=== PATIENT | male | born 1965 | race Caucasian/White ===

== ENCOUNTER 2018-09-25 03:39 | Inpatient (IN) | payer BC ==
[2018-09-25] MEDS ORDERED: NS 1,000 ML IV ONE ×2 (03:48→04:36)
[2018-09-25] MEDS ORDERED: MECLIZINE HCL 25 MG TAB PO ONE (03:49)
--- NOTE | 2018-09-25 03:54 | EDPHY ---
H & P Time Seen by Provider: 09/25/18 03:52 HPI/ROS: HPI CHIEF COMPLAINT: Dizziness, nausea, vomiting HISTORY OF PRESENT ILLNESS: This is a 52-year-old male, very poor historian, presents emergency room by EMS from his work employment where he called 911 for dizziness. He describes as room spinning. Associated nausea vomiting. He has had this before. He denies any chest pain or shortness of breath, does complain of a mild global headache. He states the dizziness gets worse when he moves his head a goes to sit up. EMS make contact with him as employment where it was noted by EMS that he was diaphoretic nauseous and vomiting. Complaining of room spinning dizziness sensation. Denies double vision. Unclear exactly when his dizziness started. Of note this patient very poor historian and answers "I dont know to most questions" Patient states cannot remember any the medications he takes. He does not recall the names of them. Of note the patient has never been here in this hospital system. Past Medical History: Bicuspid aortic valve, hypertension, CKD stage 3 Past Surgical History: Ureteral surgery due to reflux Social History: Denies drugs alcohol tobacco Family History: Noncontributory ROS REVIEW OF SYSTEMS: Limited review of systems due to patient's interaction answering questions. Exam Constitutional nontoxic, triage nursing summary reviewed, vital signs reviewed , awake/alert. Eyes normal conjunctivae and sclera, EOMI, PERRLA. HENT normal inspection, atraumatic, moist mucus membranes, no epistaxis, neck supple/ no meningismus, no raccoon eyes. Respiratory clear to auscultation bilaterally, normal breath sounds, no respiratory distress, no wheezing. Cardiovascular +, Mumur. rate normal, regular rhythm, no edema, distal pulses normal. Gastrointestinal soft, non-tender, no rebound, no guarding, normal bowel sounds, no distension, no pulsatile mass. Genitourinary no CVA tenderness. Musculoskeletal no midline vertebral tenderness, full range of motion, no calf swelling, no tenderness of extremities, no meningismus, good pulses, neurovascularly intact. Skin pink, warm, & dry, no rash, skin atraumatic. Neurologic awake, alert and oriented x 3, AAOx3, moves all 4 extremities equally, motor intact, sensory intact, CN II-XII intact, normal cerebellar, normal vision, normal speech. Psychiatric normal mood/affect. Heme/Lymph/Immune no lymphadenopathy. Differential Diagnosis: Includes but is not limited to in a particular order benign positional vertigo, central vertigo, intracranial bleed, stroke, mi, acute coronary syndrome, electrolyte disturbance, dehydration Medical Decision Making: Plan for this patient CT scan head without contrast, EKG, chest x-ray, troponin, electrolytes, IV fluid bolus, meclizine and re- evaluate. Re-evaluation: EKG interpretation by me on record in [facility] system. Impression time of EK:54 a.m., sinus rhythm rate of 63, NM interval 202. LVH present. Slight ST depression V4 V5 V6. No ST elevation. Q-waves noted V1 V2. Q-wave noted lead 3. CT scan head without contrast negative for acute bleed called to me by Dr. Samaniego. 0416: I did re-evaluate the patient at this time. Patient reports to me is feeling better with IV fluids. I was able to get more history from him he reports to me at 1:30 a.m. In the morning or approximately 3 hr ago he was sitting in chair in got sudden-onset dizzy. Is worse when he moves his head or opens his eyes. He describes spinning sensation. He denies any double vision, denies chest pain or shortness of breath. Does feel nauseous with this. He states he has had this before approximately a month ago. 0420: Discussed case in detail with [facility], Dr. Segal, recommend CT angiogram head and neck. Additionally recommend ambulating the patient if the patient can't ambulate feels comfortable that this is most likely peripheral vertigo. He did not feel the patient is a tPA candidate. Upon review the patient's blood work creatinine is elevated 2.[address] angiogram head and neck. 0430: Patient did ambulate well however does complain of dizziness. But able to ambulate. 0430AM: Patient ambulated well. NO deficit. Good Gait. Spoke with [facility] again , Dr. Segal, unable to get CT angiogram head and neck due to elevated creatinine. He does not feel this patient is a tPA candidate given there is no other further neuro deficit on exam the patient is able to ambulate. He would not give the patient tPA however he would admit the patient for dizziness. Additionally recommends MRI of the brain MRA. I have ordered this. Patient's lab work reviewed. Elevated creatinine 2.4. 0449: Spoke with Dr. Yin, discussed case in detail. He agrees for hospital admission for dizziness. Again the patient is able to ambulate without a neuro deficit. His dizziness has improved her room spinning sensation has improved with IV fluids meclizine and Phenergan. He is resting comfortably at this time. The patient denies any chest pain or shortness of breath. Unable to obtain CT angiogram of the head and neck. Due to elevated creatinine. Unlikely to have all large vessel occlusion due to neuro exam. Will proceed with MRI brain, and MRA. Plan for admission for further symptomatic control dizziness and observation. ED x-ray chest one view negative for acute cardiopulmonary disease image interpreted myself. Source: Patient, EMS Constitutional: Initial Vital Signs Temperature (C) 36.4 C 09/25/18 03:48 Heart Rate 65 09/25/18 03:48 Respiratory Rate 16 09/25/18 03:48 Blood Pressure 113/61 09/25/18 03:48 O2 Sat (%) 98 09/25/18 03:48 O2 Delivery Mode Nasal Cannula O2 (L/minute) 5 Allergies/Adverse Reactions: No Known Allergies Allergy (Verified 09/25/18 07:51) Home Medications: Medication Instructions Recorded Herbals/Supplements -Info Only 1 ea PO DAILY 09/25/18 Metoprolol Succinate Xr [Toprol Xl 25 mg PO HS 09/25/18 25 mg (*)] Multivitamins [Multivitamin (*)] 1 each PO HS 09/25/18 NIFEdipine ER [Adalat CC 60 mg (*)] 60 mg PO HS 09/25/18 Medical Decision Making - Data Points Laboratory Results: Laboratory Results 09/26/18 03:56 09/26/18 03:56 09/26/18 03:56 Hemoglobin A1c 6.0 % % (4.0-6.0) Estim Average Glucose 126 mg/dL mg/dL (68-126) Medications Given: Sodium Chloride (Ns) 1,000 mls @ 75 mls/hr IV CONT IKER Stop: 03/24/19 15:44 Last Admin: 09/25/18 15:54 Dose: 1,000 mls Metoprolol Succinate (Toprol Xl) 25 mg PO HS IKER Stop: 03/24/19 20:59 Last Admin: 09/26/18 21:40 Dose: 25 mg Multivitamins (Tab-A-Kenzie) 1 each PO HS IKER Stop: 03/24/19 20:59 Last Admin: 09/26/18 21:30 Dose: 1 each Nifedipine (Adalat Cc) 60 mg PO HS IKER Stop: 03/24/19 20:59 Last Admin: 09/26/18 21:30 Dose: 60 mg Discontinued Medications Chlorhexidine Gluconate (Hibiclens) 1 btl TP DAILY@2100 IKER Stop: 09/26/18 21:01 Last Admin: 09/26/18 21:39 Dose: 1 btl Sodium Chloride (Ns) 1,000 mls @ 0 mls/hr IV EDNOW ONE; Wide Open PRN Reason: Protocol Stop: 09/25/18 03:49 Last Admin: 09/25/18 03:56 Dose: 1,000 mls Sodium Chloride (Ns) 1,000 mls @ 0 mls/hr IV ONCE ONE; Wide Open PRN Reason: Protocol Stop: 09/25/18 04:37 Last Admin: 09/25/18 04:36 Dose: 1,000 mls Potassium Chloride/Sodium Chloride (Ns W/ 20 Kcl/L) 1,000 mls @ 75 mls/hr IV CONT IKER Stop: 03/24/19 08:29 Last Admin: 09/25/18 08:57 Dose: 1,000 mls Meclizine HCl (Meclizine Hcl) 25 mg PO EDNOW ONE Stop: 09/25/18 03:50 Last Admin: 09/25/18 04:16 Dose: 25 mg Pneumococcal Polyvalent Vaccine (Pneumovax 23) 0.5 ml IM .ONCE ONE Stop: 09/25/18 11:26 Last Admin: 09/25/18 11:38 Dose: 0.5 ml Potassium Chloride (Klor-Con) 20 meq PO DAILY IKER Stop: 03/24/19 08:59 Last Admin: 09/25/18 08:57 Dose: 20 meq Promethazine HCl (Phenergan) 6.25 mg IVP ONCE ONE Stop: 09/25/18 03:59 Last Admin: 09/25/18 04:08 Dose: 6.25 mg Point of Care Test Results: Chemistry 09/25/18 03:48 POC Troponin I 0.01 ng/mL ng/mL (0.00-0.08) Departure - Departure Disposition: [facility] Inpatient Acute Clinical Impression: Dizziness, DOTTIE (acute kidney injury) Nausea & vomiting Qualifiers: Vomiting type: unspecified Vomiting Intractability: intractable Qualified Code( s): R11.2 - Nausea with vomiting, unspecified Condition: Fair
[2018-09-25 03:57] LABS: PLATELET COUNT 286 10^3/uL (150-400)
[2018-09-25] MEDS ORDERED: PROMETHAZINE HCL 25 MG/ML INJ IVP ONE (03:58)
[2018-09-25 04:05] LABS: INR 1.1 (0.83-1.16); PROTIME(PATIENT) 14.4 SEC (12.0-15.0)
[2018-09-25] MEDS ORDERED: ACETAMINOPHEN 325 MG TAB PO PRN (04:51)
[2018-09-25] MEDS ORDERED: ONDANSETRON 4 MG/2 ML VIAL IVP PRN (04:51)
[2018-09-25] MEDS ORDERED: ONDANSETRON DISINTEGRATING 4 MG TAB PO PRN (04:51)
[2018-09-25] MEDS ORDERED: PROMETHAZINE HCL 25 MG/ML INJ IVP PRN (04:51)
[2018-09-25] MEDS ORDERED: MECLIZINE HCL 25 MG TAB PO PRN (04:52)
[2018-09-25] MEDS ORDERED: NS 1,000 ML IV SCH ×2 (05:00→15:45)
--- NOTE | 2018-09-25 05:19 | PDGENHP ---
History and Physical - Chief Complaint Dizziness, nausea - History of Present Illness 52 yo M w/ hx of bicuspid AV, CKD, and HTN presents with dizziness and nausea. Patient was in usual state of health until this afternoon when he began to experience severe dizziness and nausea while at work. He arrived to the ED via EMS. His symptoms are exacerbated by eye opening and head movement. He is able to walk but with some difficulty. He denies any other focal neurologic symptoms. Of note, he had a viral cold about 2 weeks ago. He has had one similar episode in the past 1-2 years ago. Doctors told him it may have been vertigo. His metoprolol dose was recently increased, no other medication changes. He cinthia hx of migraines. He is feeling mildly improved after medication in the ED. ED consulted [facility] who recommended MRI, which is ordered and pending. Case discussed with physician Dr. Holt; records reviewed in EMR. History Information - Allergies/Home Medication List Allergies/Adverse Reactions: No Known Allergies Allergy (Unverified 09/25/18 03:54) Home Medications: Magnesium Citrate 09/25/18 [Last Taken Unknown] Metoprolol Tartrate 09/25/18 [Last Taken Unknown] Multivitamin (*) 09/25/18 [Last Taken Unknown] NIFEdipine 09/25/18 [Last Taken Unknown] Potassium Gluconate 09/25/18 [Last Taken Unknown] I have personally reviewed and updated: family history, medical history - Past Medical History hypertension Additional medical history: CKD. Bicuspid AV - Surgical History Additional surgical history: Pediatric kidney surgery - Family History Positive for: stroke - Social History Smoking Status: Never smoked Review of Systems Review of Systems: ROS: 10pt was reviewed & negative except for what was stated in HPI & below Physical Exam Physical Exam: Temp Pulse Resp BP Pulse Ox 36.4 C 67 18 116/74 100 09/25/18 03:48 09/25/18 04:31 09/25/18 04:31 09/25/18 04:31 09/25/18 04:31 Constitutional: obese, uncomfortable Eyes: EOMI, scleral injection Ears, Nose, Mouth, Throat: moist mucous membranes, oral thrush Cardiovascular: regular rate and rhythym, systolic murmur Respiratory: no respiratory distress, clear to auscultation Gastrointestinal: normoactive bowel sounds, soft, non-tender abdomen Skin: warm, normal color Musculoskeletal: full muscle strength, no muscle tenderness Neurologic: AAOx3, CN II-XII Intact Psychiatric: interacting appropriately, flat affect Lab Data & Imaging Review 09/25/18 03:40 09/25/18 03:40 WBC 14.88 10^3/uL (3.80-9.50) H 09/25/18 03:40 RBC 5.64 10^6/uL (4.40-6.38) 09/25/18 03:40 Hgb 16.8 g/dL (13.7-17.5) 09/25/18 03:40 Hct 48.4 % (40.0-51.0) 09/25/18 03:40 MCV 85.8 fL (81.5-99.8) 09/25/18 03:40 MCH 29.8 pg (27.9-34.1) 09/25/18 03:40 MCHC 34.7 g/dL (32.4-36.7) 09/25/18 03:40 RDW 12.6 % (11.5-15.2) 09/25/18 03:40 Plt Count 286 10^3/uL (150-400) 09/25/18 03:40 MPV 11.4 fL (8.7-11.7) 09/25/18 03:40 Neut % (Auto) 70.7 % (39.3-74.2) 09/25/18 03:40 Lymph % (Auto) 20.6 % (15.0-45.0) 09/25/18 03:40 [place] % (Auto) 7.1 % (4.5-13.0) 09/25/18 03:40 Eos % (Auto) 0.9 % (0.6-7.6) 09/25/18 03:40 Baso % (Auto) 0.4 % (0.3-1.7) 09/25/18 03:40 Nucleat RBC Rel Count 0.0 % (0.0-0.2) 09/25/18 03:40 Absolute Neuts (auto) 10.50 10^3/uL (1.70-6.50) H 09/25/18 03:40 Absolute Lymphs (auto) 3.07 10^3/uL (1.00-3.00) H 09/25/18 03:40 Absolute Monos (auto) 1.06 10^3/uL (0.30-0.80) H 09/25/18 03:40 Absolute Eos (auto) 0.14 10^3/uL (0.03-0.40) 09/25/18 03:40 Absolute Basos (auto) 0.06 10^3/uL (0.02-0.10) 09/25/18 03:40 Absolute Nucleated RBC 0.00 10^3/uL (0-0.01) 09/25/18 03:40 Immature Gran % 0.3 % (0.0-1.1) 09/25/18 03:40 Immature Gran # 0.05 10^3/uL (0.00-0.10) 09/25/18 03:40 PT 14.4 SEC (12.0-15.0) 09/25/18 03:40 INR 1.10 (0.83-1.16) 09/25/18 03:40 APTT 23.0 SEC (23.0-38.0) 09/25/18 03:40 Sodium 137 mEq/L (135-145) 09/25/18 03:40 Potassium 3.1 mEq/L (3.3-5.0) L 09/25/18 03:40 Chloride 96 mEq/L (97-110) L 09/25/18 03:40 Carbon Dioxide 24 mEq/l (22-31) 09/25/18 03:40 Anion Gap 17 mEq/L (6-14) H 09/25/18 03:40 BUN 29 mg/dL (7-23) H 09/25/18 03:40 Creatinine 2.4 mg/dL (0.7-1.3) H 09/25/18 03:40 Estimated GFR 28 09/25/18 03:40 Glucose 193 mg/dL (70-100) H 09/25/18 03:40 Calcium 10.1 mg/dL (8.5-10.4) 09/25/18 03:40 Magnesium 1.9 mg/dL (1.6-2.3) 09/25/18 03:40 Total Bilirubin 1.1 mg/dL (0.1-1.4) 09/25/18 03:40 Conjugated Bilirubin 0.3 mg/dL (0.0-0.5) 09/25/18 03:40 Unconjugated Bilirubin 0.8 mg/dL (0.0-1.1) 09/25/18 03:40 AST 39 IU/L (17-59) 09/25/18 03:40 ALT 51 IU/L (21-72) 09/25/18 03:40 Alkaline Phosphatase 69 IU/L (38-126) 09/25/18 03:40 POC Troponin I 0.01 ng/mL (0.00-0.08) 09/25/18 03:48 NT-Pro-B Natriuret Pep 413 pg/mL (0-125) H 09/25/18 03:40 Total Protein 8.0 g/dL (6.3-8.2) 09/25/18 03:40 Albumin 4.5 g/dL (3.5-5.0) 09/25/18 03:40 Lipase 110 IU/L (23-300) 09/25/18 03:40 Visualized and Interpreted EKG results: Yes EKG Interpretation: Positive for: normal sinsus rhythm Assessment & Plan Assessment: 52 yo M w/ hx of HTN and CKD presents with dizziness, nausea, and vomiting. Plan: 1. Dizziness, nausea, vomiting - Constellation of symptoms consistent with vertigo. I suspect this is peripheral etiology noting lack of other focal neurologic symptoms and history of prior similar episode in the past. Exacerbation with head movement suggests BPPV, also had a cold 2 weeks ago so could be viral etiology. [facility] consulted in the ED who recommended an MRI to rule out central etiologies. CTAs contraindicated in setting of DOTTIE. - Admit for observation - mIVF, anti-emetics PRN, meclizine PRN - MRI brain pending 2. HTN - On metoprolol and nifedipine as outpatient. - Continue home medications pending reconciliation 3. DOTTIE on CKD, Stage III - Baseline creatinine 1.3-1.5 per review of records; serum creatinine 2.4 on admission. Etiology may be pre-renal noting vomiting. - Obtain UA, FeNa, FeUr - S/p 2 L IVF in ED, continue mIVF - Avoid nephrotoxic agents, renally dose medications 4. Hypokalemia - Replete cautiously noting decreased GFR. 5. Leukocytosis - Likely reactive, monitor closely for signs or symptoms of infection. Diet - Regular Code - Full Ppx - SCDs Dispo - Admit under observation status
[2018-09-25] MEDS ORDERED: NS W/ 20 KCl/L 1,000 ML IV SCH (08:30)
[2018-09-25] MEDS ORDERED: POTASSIUM CL 20 MEQ TAB PO SCH (09:00)
[2018-09-25] MEDS ORDERED: PNEUMOCOCCAL 0.5ML VACCINE VIAL IM ONE (11:25)
--- NOTE | 2018-09-25 12:50 | ASMTCMCOM ---
CM Note CM Note Notes: Pt is a 52 y/o man admitted for dizziness. PT has worked w/ pt and has cleared him to d/c without any needs. OT is pending. CM available for changes. Plan: Independent Date Signed: 09/25/2018 12:49 PM Electronically Signed By:MICHAEL Mcallister
--- NOTE | 2018-09-25 13:59 | HOSPPROG ---
Hospitalist Progress Note Assessment/Plan: Vertigo with nausea / vomiting - Brain MRI neg for acute stroke. Suspect vestibular neuritis with h/o viral URI. Symptoms somewhat improved today. - cont supportive care with IVFs, anti-emetics, meclizine PRN HTN - Cont metoprolol and nifedipine, med rec completed DOTTIE on CKD, Stage III - Baseline creatinine 1.3-1.5; serum creatinine 2.4 on admission. Suspect pre-renal with N/V. - Awaiting urine Na, Cr to calculate FeNa, cont IVF's presuming pre-renal etiology - recheck bmp this afternoon to ensure correcting - Avoid nephrotoxic agents, renally dose medications Hypokalemia - replace, follow - recheck this afternoon as above Leukocytosis - No fevers, neck pain or nuchal rigidity. Query stress response - observe off atbx, recheck in am Code - Full Ppx - SCDs Dispo - obs Subjective: Pt feels a little better, up in chair. Symptoms a little improved. No cp, sob. No neck pain or headache. No fevers. Objective: Vital Signs Temp Pulse Resp BP Pulse Ox 36.4 C 65 17 126/77 H 92 09/25/18 07:50 09/25/18 07:50 09/25/18 07:50 09/25/18 07:50 09/25/18 07:50 09/24/18 09/25/18 09/26/18 05:59 05:59 05:59 Intake Total 2120 Output Total 800 Balance 2120 -800 PT 14.4 SEC (12.0-15.0) 09/25/18 03:40 INR 1.10 (0.83-1.16) 09/25/18 03:40 - Physical Exam Constitutional: no apparent distress Eyes: PERRL Ears, Nose, Mouth, Throat: moist mucous membranes Cardiovascular: regular rate and rhythym Respiratory: no respiratory distress, clear to auscultation Gastrointestinal: normoactive bowel sounds, soft, non-tender abdomen Skin: warm Musculoskeletal: full muscle strength Neurologic: AAOx3 Psychiatric: interacting appropriately ICD10 Worksheet Patient Problems: Problems Problem Status Onset DOTTIE (acute kidney injury) Acute Dizziness Acute Nausea & vomiting Acute
[2018-09-25] MEDS: METOPROLOL SUCCINATE XR 25 MG TAB PO SCH (20:45)
[2018-09-25] MEDS: MULTIVITAMINS 1 EACH TAB PO SCH (20:45)
[2018-09-25] MEDS: NIFEdipine ER 60 MG TAB PO SCH (20:45)
[2018-09-26 04:58] LABS: PLATELET COUNT 212 10^3/uL (150-400)
--- NOTE | 2018-09-26 06:06 | CPEKG ---
Test Reason : OPEN Blood Pressure : / mmHG Vent. Rate : 063 BPM Atrial Rate : 064 BPM P-R Int : 202 ms QRS Dur : 096 ms QT Int : 468 ms P-R-T Axes : 045 008 189 degrees QTc Int : 480 ms Sinus rhythm Borderline prolonged TN interval Probable left atrial enlargement LVH with secondary repolarization abnormality Borderline prolonged QT interval Confirmed by Nirav Winkler ([id number]) on 09/26/2018 6:05:33 AM Referred By: Confirmed By:Nirav Winkler
--- NOTE | 2018-09-26 10:37 | HOSPPROG ---
Hospitalist Progress Note Assessment/Plan: Dizziness 2/2 symptomatic - Brain MRI neg for acute stroke. Symptoms sound more c/w pre-syncope and in setting of significant heart murmur, query valve dz / symptomatic - echo obtained from [facility], which showed severe - cardiology / surgical evaluation requested: discussed with Dr. Hummel and Dr. Michaud, cath today, likely valve replacement Sunday AHRF - desatted to 77% overnight. CXR this am pers reviewed/interp- no acute dz process. D dimer neg. 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 FeNa yest >2%. Renal u/s neg for obstruction. - cont to follow - Avoid nephrotoxic agents, renally dose medications Hypokalemia - resolved Leukocytosis - likely stress response, resolved Code - Full Ppx - Lovenox tonight, hold tomorrow night for planned OR Sat am Dispo - cont inpt, plans for heart cath, valve replacement Subjective: Pt feels ok, hoping to go home today. Denies CP or SOB. 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 Objective: Vital Signs Temp Pulse Resp BP Pulse Ox 36.5 C 66 20 142/84 H 98 09/26/18 07:51 09/26/18 07:51 09/26/18 07:51 09/26/18 07:51 09/26/18 07:51 Laboratory Results 09/26/18 03:56 09/26/18 03:56 09/25/18 09/26/18 09/27/18 05:59 05:59 05:59 Intake Total 2119 1019 Output Total 2049 Balance 2119 -1029 PT 14.4 SEC (12.0-15.0) 09/25/18 03:40 INR 1.10 (0.83-1.16) 09/25/18 03:40 - Physical Exam Constitutional: no apparent distress Eyes: PERRL Ears, Nose, Mouth, Throat: moist mucous membranes Cardiovascular: regular rate and rhythym, systolic murmur Respiratory: no respiratory distress, clear to auscultation Gastrointestinal: normoactive bowel sounds, soft, non-tender abdomen Skin: warm Musculoskeletal: full muscle strength Neurologic: AAOx3 Psychiatric: interacting appropriately ICD10 Worksheet Patient Problems: Problems Problem Status Onset DOTTIE (acute kidney injury) Acute Dizziness Acute Nausea & vomiting Acute
[2018-09-26] MEDS ORDERED: IPRATROPIUM/ALBUTEROL 3 ML DEYVIAL IH PRN (11:35)
--- NOTE | 2018-09-26 13:52 | GCON ---
CARDIOLOGY CONSULTATION CHIEF COMPLAINT: Dizziness, nausea. HISTORY OF PRESENT ILLNESS: This is a 52-year-old male with history of bicuspid aortic valve disease , chronic kidney disease, hypertension who presents with dizziness, lightheadedness. The patient ind icates that he has been getting increasingly lightheaded with dizziness over the last month. He did have a recent echocardiogram done apparently at an outside hospital, which showed severe aortic steno sis with a bicuspid aortic valve. Currently denies any chest pain, though he does have dyspnea with excessive exertion. Blood pressure is currently stable. Stroke workup was negative for any acute CV A. ECG on arrival showed normal sinus rhythm with nonspecific T-wave changes with no acute ischemic issues. Neck MRA showed mild plaque disease bilaterally in the carotid arteries. PAST MEDICAL HISTORY: Significant for chronic kidney disease, aortic stenosis, hypertension. HOME MEDICATIONS: Consist of magnesium, metoprolol, nifedipine, potassium. PAST SURGICAL HISTORY: Significant for pediatric kidney surgery. FAMILY HISTORY: Positive for CVA. SOCIAL HISTORY: Smoking status: Currently denies any smoking. Occasional alcohol use. REVIEW OF SYSTEMS: Patient currently denies any visual changes. No headache. No ear pain, but does indicate feeling lightheaded and dizzy with exertion. No neck pain. No throat pain. No current ch est pain. No back pain. No upper extremity pain. He does indicate shortness of breath with exertio n. No abdominal pain. No lower extremity pain. No neurologic deficits. PHYSICAL EXAM: VITAL SIGNS: Afebrile 96, blood pressure currently 140/70 with a heart rate 72, resp iration 12, satting 95% on 2 L nasal cannula. HEENT: Pupils equal and reactive to light and accommo dation. Extraocular movements intact. CARDIOVASCULAR: Regular rhythm, S1, S2. 3/6 systolic murmur throughout the precordium. LUNGS: Decreased breath sounds at the bases. ABDOMEN: Soft, nontender . No guarding. EXTREMITIES: No clubbing. No cyanosis. No edema. NEUROLOGIC: Patient is alert a nd oriented x3. LABORATORY VALUES: Currently show a sodium 140, potassium 3.6, chloride 105, bicarb 28, BUN 24, crea tinine 1.4. White blood cell count 8.8, hemoglobin 14.3, platelet count of 212. ASSESSMENT/PLAN: Dizziness/lightheadedness. At this time, it appears the patient's symptoms might b e from his underlying valvular heart disease. We will obtain our own echocardiogram to verify that t his truly is severe aortic stenosis. If indeed, this is verified that the patient does have severe/c ritical aortic stenosis, we will then proceeded with a workup for potential aortic valve replacement. Right and left heart catheterization will be needed, as well as a CT Surgery consult. We will proc eed accordingly after the echo is performed. /[id number]/MODL
--- NOTE | 2018-09-26 14:00 | ASMTCMCOM ---
CM Note CM Note Notes: Pts case discussed in tx rounds. Pt is getting a heart cath today. Pt may need open heart in the near future. Pt is not a candidate for TAVR at this time. CM met w/ pt and partner for dispo planning. Pt is concerned that his [employer] will not cover an open heart. CM provided pt w/ phone number for financial counseling. CM available for d/c needs. Date Signed: 09/26/2018 01:59 PM Electronically Signed By:MICHAEL Mcallister
[2018-09-26] MEDS ORDERED: LIDOCAINE 1% 300 MG/30 ML SDV ONE (14:34)
[2018-09-26] MEDS ORDERED: fentaNYL 100 MCG/2 ML INJ ONE (14:34)
[2018-09-26] MEDS ORDERED: MIDAZOLAM 2 MG/2 ML VIAL ONE (14:34)
[2018-09-26] MEDS ORDERED: IOPAMIDOL (ISOVUE-370) 150 ML BTL IV ONE (14:35)
--- NOTE | 2018-09-26 15:04 | PDPROPOC ---
Sedation Plan of Care Sedation Plan of Care: mental status noted, patient educated of risks, benefits , alternatives, patient can tolerate sedation ASA Classification: ASA 2 Planned drugs: fentanyl, midazolam Mallampati Score: Class 2 Mallampati Reference Image: Patient passed 3-3-2 rule?: Yes
--- NOTE | 2018-09-26 15:04 | PDHPUP ---
History & Physical Update H&P update statement: This history and physical update is based on an assessment of the patient which was completed after admission or registration (within 24 hours), but prior to the surgery/procedure. H&P update: H&P reviewed & patient examined, no change in patient's condition since H&P completed
--- NOTE | 2018-09-26 15:53 | ECHO ---
[email or web address] [address] Main: [phone] Fax: Transthoracic Echocardiogram Name: FRANCHESCA AUGUST MR#: [id number] Study Date: 09/26/2018 Study Time: 02:25 PM Date of : 1965 Age: 52 year(s) Height: 175.3 cm (69 in.) Weight: 107.96 kg (238 lb.) BSA: 2.22 m2 Gender: Male Examination: Echo Indication: Image Quality: Adequate Contrast: Requested by: Amarjit Michaud BP: 142 mmHg/84 mmHg Heart Rate: Rhythm: Indication: Procedure Staff Companion: Katie Fournier RDCS Reading Physician: Amarjit Michaud MD Requesting Provider: Conclusions: Borderline concentric LV hypertrophy. Normal global systolic LV function. EF is 60 %. Mild mitral valve regurgitation is present. Bicuspid aortic valve. Mild to moderate aortic valve regurgitation. Mild tricuspid regurgitation is present. Right ventricular systolic pressure measures 38mmHg. Measurements: Chambers Valvular Assessment AV/MV Valvular Assessment TV/PV Normal Normal Normal Name Value Range Name Value Range Name Value Range Ao Barbie (2D): 3.4 cm (1.4 cm-2.6 AV Vmax: 4.80 m/s (1 m/s-1.7 TR Vmax: 2.86 mm/s ( - ) cm) m/s) TR PGmax: 33 mmHg ( - ) IVSd (2D): 1.1 cm (0.6 cm-1.1 AV maxP mmHg ( - ) syst. PAP: 38 mmHg ( - ) cm) AV meanP mmHg ( - ) PV Vmax: 1.30 m/s (0.6 m/s-0.9 LVDd (2D): 4.5 cm (4.2 cm-5.9 MISSY (VTI): 0.8 cm ( - ) m/s) cm) MV E Vmax: 1.23 m/s ( - ) PV PGmax: 7 mmHg ( - ) LVDs (2D): 2.8 cm (2.1 cm-4 MV A Vmax: 1.21 m/s ( - ) cm) MV E/A: 1.02 ( - ) LVPWd (2D): 1.1 cm (0.6 cm-1 cm) MV PHT: 0.070 s ( - ) LVOTd 1.9 cm 1.9 cm mm MVA (PHT): 3.1 s ( - ) LVEF (BP): 60 % (>=55 %) RVDd(2D): 2.8 cm (1.9 cm-3.8 cmmm) Continued Measurements: Chambers Valvular Assessment AV/MV Valvular Assessment TV/PV Patient: FRANCHESCA AUGUST Study Date: 09/26/2018 Page 1 of 2 02:25 PM Name Value Name Value Name Value LADs: 3.8 cm MV DecTime: 239 m/s CVP (est.): 5 mmHg LADs Lon.6 cm MV E' Septal: 0.08 m/s LA Area: 15.2 cm2 MV E/E' Septal: 16.20 LA Volume: 59 ml MV E/E' Lateral: 22.30 LA Volume Index: 26.6 ml/m2 RA Area: 14.5 cm2 Additional Vessels Name Value Ao Ascendin.5 cm Findings: Left Ventricle: Normal size left ventricle. Borderline concentric LV hypertrophy. Normal global systolic LV function. EF is 60 %. No regional wall motion abnormality. Grade 2 diastolic dysfunction (pseudonormalized LV filling pattern). Right Ventricle: Normal size right ventricle. Normal RV function. Left Atrium: The left atrium is normal in size. Right Atrium: The right atrium is normal in size. Mitral Valve: The mitral valve is normal in appearance and function. Mild mitral valve regurgitation is present. No mitral stenosis is present. Aortic Valve: Bicuspid aortic valve. Moderate aortic cusp calcification is present. Mild to moderate aortic valve regurgitation. Severe calcific aortic valve stenosis. Tricuspid Valve: The tricuspid valve is normal in appearance and function. Mild tricuspid regurgitation is present. The pulmonary artery pressure is normal. Right ventricular systolic pressure measures 38mmHg. Pulmonic Valve: The pulmonic valve is normal in appearance and function. Mild pulmonic valve regurgitation is noted. Aorta: The aorta is normal. Normal size aortic root measuring 3.4 cm. Normal size ascending aorta measuring 3.5 cm. Pericardium: No pericardial effusion. No pleural effusion. (No Signature Object) Patient: FRANCHESCA AUGUST Study Date: 09/26/2018 Page 2 of 2 02:25 PM [id number]
--- NOTE | 2018-09-26 16:13 | PDMN ---
Medical Necessity Medical necessity: Change to inpt as of 09/26/18 @ 10:34. Pt meets inpt criteria per MD order and MCG M-152, Dizziness. Ongoing dizziness/light headedness requiring further workup, cardiology consult, suspect pt's symptoms from his underlying valvular heart disease. Echo pending, heart cath pending. Est LOS> 2MN for ongoing eval/management of above.
--- NOTE | 2018-09-26 16:58 | CPIP ---
DATE OF PROCEDURE: 09/26/2018 INDICATION FOR PROCEDURE: Critical aortic stenosis. PROCEDURE: 1. Nonselective right groin sheathogram. 2. 7-Egyptian sheath right femoral vein. 3. Right heart catheterization with [place] catheter. 4. Bilateral coronary angiography. HISTORY: Briefly, this is a 52-year-old male with history of dizziness, lightheadedness, shortness o f breath who was admitted for these symptoms, and was found to have critical bicuspid aortic stenosis . Given these findings, patient was consented for right and left heart catheterization in anticipati on for eventual AVR. DESCRIPTION OF PROCEDURE: After informed consent, the patient was brought to [facility] where the right silke in was prepped and draped in sterile fashion. Using lidocaine, a short 6-Egyptian sheath was introduced in the right femoral artery, verified angiogr aphically. A 7-Egyptian sheath in the right common vein. [place] catheter was then advanced, which was latex-free due to the patient's latex allergy. Wedge pressure was mean of 25, A-wave of 30, V-wa ve of 33. PA pressure was systolic of 50 with a diastolic 24, mean of 33. RV pressure was systolic 43, diastolic of 18, end of 21. RA pressure was 17 mean, A-wave 19, V-wave 17. Cardiac output was m easured to be 6.9 by Alejandra with a cardiac index of 3.1. PA sat was 74% with an AO sat of 94%. [place] catheter was then removed. A JL4 catheter was advanced to left coronary artery. Images of the left coronary artery revealed long left main. Left circumflex artery gave off a marginal 1 prox imally, which was healthy and free of disease. The AV groove circ had fldq-sy-arpkosrm plaque diseas e, but no focal stenosis. The LAD was a long vessel, which wrapped around the apex. The LAD gave of f a large diagonal artery in its midportion, which was healthy and free of disease. Distal LAD appea red to be healthy and free of disease. After these images obtained, the JL4 catheter was removed. The JR4 catheter was advanced to the [facility] coronary artery. Images of the right coronary artery revealed normal ostium, proximal, distal RCA, normal RPDA and RPLS. After these images were obtained, the JR4 catheter was removed over the 0.035 wire. The right groin was closed 6-Egyptian Angio-Seal. The patient tolerated the procedure well wit h no complications. #7-Egyptian sheath was removed with manual compression. IMPRESSION: 1. Essentially normal coronary arteries. 2. Dguw-ji-nearvamz pulmonary hypertension. 3. Normal cardiac output. PLAN: The patient will have 3 hours bed rest. Continue with CT Surgery evaluation for open AVR. /[id number]/MODL
--- NOTE | 2018-09-26 17:03 | GCON ---
DATE OF CONSULTATION: 09/26/2018 REFERRING PHYSICIAN: Khushboo Bob MD The patient is seen at the request of Dr. Khushboo Bob with the patient's permission. IMPRESSION: 1. Critical aortic stenosis, symptomatic with a bicuspid aortic valve, status of the coronaries and aorta unknown. 2. Obesity. 3. Chronic kidney disease with baseline creatinine of 1.4 to 2.4 on this admission. 4. Hyperlipidemia. 5. Hapfvojpw-kv-iuhqech hypertension. RECOMMENDATIONS: This gentleman should undergo urgent aortic valve replacement for syncope and near- syncope episodes with minimal provocation with known critical aortic stenosis. He was initially aske d to be seen for transcatheter aortic valve replacement; however, he is a low risk transcatheter aort ic valve replacement, and at his age with bicuspid valve, surgical intervention is more appropriate. We will obtain a noncontrast CT and do a limited diagnostic catheterization with anticipation of pro ceeding with aortic valve replacement on this admission. He and his were in full agreement and appreciative of our discussion. He will be seen by Dr. Maravilla in the morning who will help correlate the timing of the surgery. CHIEF COMPLAINT: This is a pleasant 52-year-old gentleman with a history of known aortic stenosis wi th bicuspid aortic valve disease seen several years ago for a near-syncopal event. At that time, his disease was considered only moderate to moderate severe. he had no subsequent followup and until re cently, he was having dizziness, lightheadedness, and near-syncopal episodes. He underwent a diagnos tic echo at [facility], which revealed velocities of 4.5 with hypertrophic heart disease and minimal other o bvious abnormalities. He then was at work in [employer] and had a syncopal event at work while sitting at his desk. He was brought to the ER, Initially worked up for neurological disorder, which none was identified, and upon further evaluation, hospitalist identified critical aortic stenosis and obtaine d his echo from [facility]. PAST MEDICAL HISTORY: As stated. PAST SURGICAL HISTORY: Surgeries denied. 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 HOME MEDICATIONS: Magnesium, metoprolol, multivitamin, nifedipine, and potassium gluconate. ALLERGIES: He has no known allergies. PHYSICAL EXAM: GENERAL: He is a bit obese middle-aged gentleman sitting in bed, comfortable, in no apparent distress, quite pleasant, well informed. HEENT: Normocephalic. ACOSTA, EOMI. NECK: Has transmitted bruits from the chest. HEART: Has a murmur of critical aortic stenosis across precordiu m. LUNGS: Clear. ABDOMEN: Protuberant. No palpable mass. EXTREMITIES: Pedal pulses are 2+ and symmetrical. No edema. No varicosities. LABORATORY/IMAGING: Baseline creatinine was 2.4 on admission and is 1.4 today. Chest x-ray shows no abnormality. /[id number]/MODL
--- NOTE | 2018-09-26 17:09 | PDSURGCRDT ---
CardioThoracic Surgery Note - Objective Objective: Vital Signs Temp Pulse Resp BP Pulse Ox 36.5 C 66 20 142/84 H 86 L 09/26/18 07:51 09/26/18 07:51 09/26/18 07:51 09/26/18 07:51 09/26/18 11:28 Imaging: Brief note (full consult to follow) 52 year old with critical and syncope. Cath shows normal coronaries. Ascending aorta looks mildly enlarged on echo. Due to bicuspid nature of valve, will plan for ascending aortic repair if enlarged. Risks benefits alternatives reviewed. Patient agrees to proceed. Plan for OR tomorrow at 11:45. Aortic valve replacement possible repair ascending aorta aneurysm Exam Temp Pulse Resp BP Pulse Ox 36.5 C 66 20 142/84 H 86 L 09/26/18 07:51 09/26/18 07:51 09/26/18 07:51 09/26/18 07:51 09/26/18 11:28
[2018-09-26] MEDS ORDERED: ENOXAPARIN 40 MG/0.4 ML SYR SC SCH (21:00)
[2018-09-26] MEDS ORDERED: CHLORHEXIDINE GLUC HIBICLENS 118 ML BTL TP SCH (21:00)
[2018-09-26] MEDS: NIFEdipine ER 60 MG TAB PO SCH (21:30)
[2018-09-26] MEDS: MULTIVITAMINS 1 EACH TAB PO SCH (21:30)
[2018-09-26] MEDS: METOPROLOL SUCCINATE XR 25 MG TAB PO SCH ×2 (21:31→21:40)
--- NOTE | 2018-09-27 06:58 | PDCARPN ---
Cardiology Progress Note Chief Complaint: dizziness/SOB Assessment/Plan: Assessment: dizziness/SOB severe bicuspid Plan: 09/27/18 06:58 normal cors plan for surgery today Subjective: stable Reviewed/Discussed With: multidisciplinary team Time Spent with Patient: greater than 25 minutes Time Spent with Patient: Greater than 25 minutes spent on this patients care, greater than 50% of time spent counseling, educating, and coordinating care regarding the above mentioned plan. Objective: Vital Signs (8 Hrs) Temp Pulse Resp BP Pulse Ox 09/27/18 04:00 36.7 C 75 12 156/87 H 100 Intake/Output (24 Hrs) 09/26/18 09/27/18 09/28/18 05:59 05:59 05:59 Other: Weight 104.1 kg Intake Quantity Yes Sufficient Number of Voids Toilet 1 Result Diagrams: 09/26/18 03:56 09/27/18 03:50 - Physical Exam Constitutional: no apparent distress Ears, Nose, Mouth, Throat: moist mucous membranes Cardiovascular: regular rate and rhythm, systolic murmur Peripheral Pulses: 1+: femoral (R), femoral (L) Respiratory: clear to auscultate bilat Gastrointestinal: normoactive bowel sounds Genitourinary: no suprapubic tenderness Skin: no rashes Musculoskeletal: no muscular tenderness Neurologic: AAOx3 Psychiatric: cooperative ICD10 Worksheet Patient Problems: Problems Problem Status Onset DOTTIE (acute kidney injury) Acute Dizziness Acute Nausea & vomiting Acute
[2018-09-27] MEDS ORDERED: niCARdipine/NACL 200 ML IV ONE (09:00)
[2018-09-27] MEDS ORDERED: CITRATE DEXTROSE SOLN 500 ML BAG MISC ONE (09:00)
[2018-09-27] MEDS ORDERED: ceFAZolin 2 GM/DEXTROSE 100 ML IV ONE (09:00)
[2018-09-27] MEDS ORDERED: PHENYLEPHRINE HCL 50 MG in NS 250 ML IV ONE (09:00)
[2018-09-27] MEDS ORDERED: MUPIROCIN 2% 22 GM OINT NS ONE (09:00)
[2018-09-27] MEDS ORDERED: NOREPINEPHRINE BITARTRATE 16 MG in NS 250 ML IV ONE (09:00)
[2018-09-27] MEDS ORDERED: MANNITOL 25% 12.5 GM/50 ML VIAL IVP ONE (09:00)
[2018-09-27] MEDS ORDERED: INSULIN REGULAR HUMAN 100 UNIT in NS 100 ML IV ONE (09:00)
[2018-09-27] MEDS ORDERED: CARDIOPLEGIC SOLUTION 1,052.8 ML PF ONE (09:00)
[2018-09-27] MEDS ORDERED: AMINOCAPROIC ACID 5 GM/20 ML VIAL IV ONE (09:00)
[2018-09-27] MEDS ORDERED: LR 1,000 ML IV ONE (10:35)
[2018-09-27] MEDS ORDERED: PROTAMINE SULFATE 50 MG/5 ML VIAL IVP ONE (13:15)
[2018-09-27] MEDS ORDERED: MILRINONE/DEXTROSE/100 ML BAG IV ONE (13:16)
[2018-09-27] MEDS ORDERED: NA BICARBONATE 50 MEQ/50 ML VIAL ONE (13:16)
[2018-09-27] MEDS ORDERED: CALCIUM CHLORIDE 1 GM/10 ML INJ ONE (13:16)
[2018-09-27] MEDS ORDERED: ALBUMIN 5% 250 ML BOTTLE IV ONE ×2 (13:16→16:47)
[2018-09-27] MEDS ORDERED: HEPARIN 10,000 UNIT/10 ML MDV (1,000 UNIT/ML) ONE (13:17)
[2018-09-27] MEDS ORDERED: DOPamine/DEXTROSE 400 MG/250 ML BAG IV ONE (13:17)
[2018-09-27] MEDS ORDERED: LIDOCAINE 2% 100 MG/5 ML SYR ONE (13:17)
[2018-09-27] MEDS ORDERED: niCARdipine/NACL/200 ML BAG IV ONE (13:17)
[2018-09-27] MEDS ORDERED: CITRATE DEXTROSE SOLN 500 ML BAG ONE (13:17)
[2018-09-27] MEDS ORDERED: AMIODARONE HCL 150 MG/3 ML VIAL ONE (13:18)
[2018-09-27] MEDS ORDERED: ceFAZolin 1 GM VIAL ONE (13:18)
[2018-09-27] MEDS ORDERED: ADENOSINE 6 MG/2 ML VIAL ONE (13:18)
[2018-09-27] MEDS ORDERED: NITROGLYCERIN/D5W 50 MG/250 ML BOTTLE IV ONE (13:18)
[2018-09-27] MEDS ORDERED: methylPREDNISolone SOD SUCC 1 GM/8 ML VIAL ONE (13:18)
[2018-09-27] MEDS ORDERED: fentaNYL 250 MCG/5 ML INJ ONE (13:44)
[2018-09-27] MEDS ORDERED: MIDAZOLAM 2 MG/2 ML VIAL IVP ONE (13:45)
--- NOTE | 2018-09-27 13:46 | PDANEPAE ---
ANE History of Present Illness here for AVR ANE Past Medical History - Pulmonary History Hx Oxygen in Use at Home: No Hx Sleep Apnea: Yes Sleep Apnea Screening Result - Last Documented: Positive - Endocrine History Hx Diabetes: No - Chronic Pain History Chronic Pain: Yes ANE Review of Systems Review of Systems: ANE Patient History - Allergies Allergies/Adverse Reactions: latex Allergy (Verified 09/27/18 03:03) - Home Medications Home Medications: Herbals/Supplements -Info Only 1 ea PO DAILY 09/25/18 [Last Taken Unknown] Metoprolol Succinate Xr [Toprol Xl 25 mg (*)] 25 mg PO HS 09/25/18 [Last Taken 09/24/18] Multivitamins [Multivitamin (*)] 1 each PO HS 09/25/18 [Last Taken 09/24/18] NIFEdipine ER [Adalat CC 60 mg (*)] 60 mg PO HS 09/25/18 [Last Taken 09/24/18] - NPO status NPO Since - Liquids (Date): 09/27/18 NPO Since - Liquids (Time): 00:01 NPO Since - Solids (Date): 09/27/18 NPO Since - Solids (Time): 00:01 - Smoking Hx Smoking Status: Never smoked ANE Labs/Vital Signs - Labs Result Diagrams: 09/26/18 03:56 09/27/18 03:50 - Vital Signs Blood Pressure: 169/93 Heart Rate: 77 Respiratory Rate: 14 O2 Sat (%): 94 Height: 175.26 cm Weight: 104.1 kg ANE Physical Exam - Airway Neck exam: FROM Mallampati Score: Class 1 Mouth exam: dentures - Pulmonary Pulmonary: no respiratory distress - Cardiovascular Cardiovascular: regular rate and rhythym - ASA Status ASA Status: IV ANE Anesthesia Plan Anesthesia Plan: general endotracheal anesthesia Lines/Monitors: arterial line, central line, VANESSA
[2018-09-27] MEDS ORDERED: PROPOFOL/EMULSION 500 MG/50 ML BOTTLE IV ONE (13:48)
--- NOTE | 2018-09-27 13:58 | HOSPPROG ---
Hospitalist Progress Note Assessment/Plan: Pre-syncope 2/2 symptomatic severe - He has had cardiology and CV surgery evals who agree symptoms likely 2/2 severe - echo obtained from [facility], which showed severe , confirmed by echo here - cardiology / surgical evaluations yesterday: discussed with Dr. Hummel and Dr. Michaud, cath yest with clean cors, valve replacement planned for this afternoon AHRF - desatted to 77% overnight. CXR yest with no acute dz process. D dimer neg. 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 FeNa yest >2%. Renal u/s neg for obstruction. - cont to follow - Avoid nephrotoxic agents, renally dose medications Hypokalemia - resolved Leukocytosis - likely stress response, resolved Code - Full Ppx - Lovenox post-op per CV surgery team Dispo - cont inpt, OR today Subjective: Pt feels ok, still a bit dizzy at times. No CP or SOB. He is agreeable to proceeding with valve replacement. Objective: Vital Signs Temp Pulse Resp BP Pulse Ox 36.8 C 77 14 169/93 H 94 09/27/18 10:50 09/27/18 13:46 09/27/18 13:46 09/27/18 13:46 09/27/18 13:46 Laboratory Results 09/27/18 03:50 PT 14.4 SEC (12.0-15.0) 09/25/18 03:40 INR 1.10 (0.83-1.16) 09/25/18 03:40 - Physical Exam Constitutional: no apparent distress Eyes: PERRL Ears, Nose, Mouth, Throat: moist mucous membranes Cardiovascular: regular rate and rhythym, systolic murmur Respiratory: no respiratory distress, clear to auscultation Gastrointestinal: normoactive bowel sounds, soft, non-tender abdomen Skin: warm Musculoskeletal: full muscle strength Neurologic: AAOx3 Psychiatric: interacting appropriately ICD10 Worksheet Patient Problems: Problems Problem Status Onset DOTTIE (acute kidney injury) Acute Dizziness Acute Nausea & vomiting Acute
[2018-09-27] MEDS ORDERED: BACITRACIN 50,000 UNITS/10 ML SYR IRR ONE (14:27)
[2018-09-27] MEDS ORDERED: GENTAMICIN SULFATE 80 MG/2 ML VIAL ONE (14:27)
[2018-09-27] MEDS ORDERED: KETAMINE 200 MG/20 ML VIAL ONE (14:28)
[2018-09-27] MEDS ORDERED: PHENYLEPHRINE HCL 100 MCG/ML SYR ONE ×2 (14:30→16:35)
[2018-09-27] MEDS ORDERED: THROMBIN (BOVINE) 5,000 UNIT VIAL TP ONE (14:45)
[2018-09-27] MEDS ORDERED: ePHEDrine SULFATE 25 MG/5 ML SYR ONE (16:35)
[2018-09-27] MEDS ORDERED: HYDROmorphONE/DILAUDID 2 MG/ML INJ ONE (16:36)
[2018-09-27] MEDS ORDERED: fentaNYL 100 MCG/2 ML INJ ONE (17:31)
[2018-09-27] MEDS ORDERED: SODIUM CL NASAL 45 ML BTL EACHNARE PRN (17:48)
[2018-09-27] MEDS ORDERED: BISACODYL 10 MG SUPP PR PRN (17:48)
[2018-09-27] MEDS ORDERED: CEPACOL LOZENGE PO PRN (17:48)
[2018-09-27] MEDS ORDERED: POLYETHYLENE GLYCOL 3350 17 GM PKT PO PRN (17:48)
[2018-09-27] MEDS ORDERED: ALBUMIN 5% 250 ML IV PRN (17:48)
[2018-09-27] MEDS ORDERED: ACETAMINOPHEN 650 MG SUPP PR PRN (17:48)
[2018-09-27] MEDS ORDERED: fentaNYL 100 MCG/2 ML INJ IVP PRN (17:48)
[2018-09-27] MEDS ORDERED: MAGNESIUM HYDROXIDE 30 ML UDCUP PO PRN (17:48)
[2018-09-27] MEDS ORDERED: D50W 25 GM/50 ML SYR IVP PRN (17:48)
[2018-09-27] MEDS ORDERED: LACTULOSE 20 GM/30 ML UDCUP PO PRN (17:48)
[2018-09-27] MEDS ORDERED: PANTOPRAZOLE SODIUM 40 MG VIAL IVP ONE (17:48)
[2018-09-27] MEDS ORDERED: METOCLOPRAMIDE 10 MG/2 ML VIAL IVP PRN (17:48)
[2018-09-27] MEDS ORDERED: MEPERIDINE 25 MG/0.5 ML AMP IVP PRN (17:48)
[2018-09-27] MEDS ORDERED: HYDROmorphONE/DILAUDID 2 MG TAB PO PRN (17:57)
[2018-09-27] MEDS ORDERED: NS 1,000 ML IV SCH (18:00)
[2018-09-27] MEDS ORDERED: INSULIN REGULAR HUMAN 100 UNIT in NS 100 ML IV SCH (18:00)
[2018-09-27] MEDS: POTASSIUM Cl (KCl) 50 ML IV PRN ×4 (18:36→22:40)
--- NOTE | 2018-09-27 18:52 | POSTANESTH ---
Post Anesthetic Evaluation Cardiovascular Status: Normal, Stable Respiratory Status: Normal, Stable Level of Consciousness/Mental Status: Unconscious Pain Control: Adequate, Prn Tx Ordered Nausea/Vomiting Control: Adequate, Prn Tx Ordered Complications Possibly Related to Anesthesia: None Noted
[2018-09-27] MEDS: niCARdipine/NACL 200 ML IV PRN (20:09)
[2018-09-27] MEDS ORDERED: PANTOPRAZOLE SODIUM 40 MG VIAL ONE (20:29)
[2018-09-27] MEDS ORDERED: FAMOTIDINE 20 MG/NACL 50 ML IV SCH ×2 (21:00)
[2018-09-27] MEDS ORDERED: CHLORHEXIDINE GLUCONATE 15 ML UDL PO SCH (21:00)
[2018-09-27] MEDS: CHLORHEXIDINE GLUCONATE 15 ML UDL PO SCH (21:29)
[2018-09-27] MEDS: MUPIROCIN 2% 22 GM OINT NS SCH (21:49)
[2018-09-27] MEDS: ceFAZolin 2 GM/DEXTROSE 100 ML IV SCH (22:39)
[2018-09-28] MEDS: niCARdipine/NACL 200 ML IV PRN ×3 (03:04→09:43)
[2018-09-28 04:36] LABS: PLATELET COUNT 146 10^3/uL (150-400)
[2018-09-28] MEDS: ceFAZolin 2 GM/DEXTROSE 100 ML IV SCH ×3 (06:46→23:00)
--- NOTE | 2018-09-28 07:10 | SOAPPROG ---
SOAP Progress Note Assessment/Plan: Assessment: POD#1 AVR #23 Intuity Elite sutureless bioprosthesis BAV w sx severe - s/p tissue AVR. Stable early postop course. No pressor support. No bradyarrhythmias. No sig fluid overload. Antithrombotic prophylaxis with ASA alone pending stability of rhythm. AF prophylaxis and HTN control with BB. Acute expected blood loss anemia - Stable. No blood products transfused. CKD3 - Baseline Cr 1.3 -1.5. Stable. Cont care with fluid management. Relaxed BP control for now for renal protection. HTN - controlled on combination therapy. Postop control with nicardipine. Transition to BB planned. Accept SBP < 140. Plan: Routine POD#1 orders re drains, wires, orals and mobility. Start metoprolol tartrate 25 mg BID and wean nicardipine. Consider exchange swan cordis to TLC. Inc activity as tolerated. Consider tx to PCU later today. 09/28/18 07:08 Subjective: Comfortable. "I have a high pain tolerance". No nausea. Thirsty. Objective: Vital Signs Temp Pulse Resp BP Pulse Ox 37.0 C 82 20 130/60 H 95 09/28/18 06:00 09/28/18 06:00 09/28/18 06:00 09/28/18 06:00 09/28/18 06:00 Laboratory Results 09/28/18 04:10 09/28/18 04:10 09/27/18 09/28/18 09/29/18 05:59 05:59 04:59 Intake Total 2329.5 Output Total 1437 Balance 892.5 PT 14.4 SEC (12.0-15.0) 09/25/18 03:40 INR 1.10 (0.83-1.16) 09/25/18 03:40 Extubated early postop without incident. Nicardipine at 8 mg/h overnoc for BP control. HR and rhythm stable. Min CTOP. Adequate UOP w stable renal fx. CXR-> Hypoventilation, no PTX, patchy atelectasis of LLL. Physical Exam - Physical Exam General Appearance: alert, no apparent distress Respiratory: lungs clear (rt lung), other (tube noise, left side; chest tube to pleurovac, serosang drainage, +tidal, no air leak) Cardiac/Chest: regular rate, rhythm, other (Sternal silver dressing CDI. A & V wires intact.) Abdomen: normal bowel sounds, non-tender, soft Skin: warm/dry Extremities: swelling (1+ gen) ICD10 Worksheet Patient Problems: Problems Problem Status Onset DOTTIE (acute kidney injury) Acute Acute blood loss anemia Acute Aortic stenosis due to bicuspid aortic valve Acute Dizziness Acute Nausea & vomiting Acute S/P aortic valve replacement with bioprosthetic valve Acute ~09/27/18
[2018-09-28] MEDS: ASPIRIN 81 MG CHEWABLE TAB PO SCH (08:07)
[2018-09-28] MEDS: CHLORHEXIDINE GLUCONATE 15 ML UDL PO SCH (08:07)
[2018-09-28] MEDS: PANTOPRAZOLE SODIUM 40 MG TAB PO SCH (08:07)
[2018-09-28] MEDS: MUPIROCIN 2% 22 GM OINT NS SCH ×2 (08:08→20:04)
[2018-09-28] MEDS: POTASSIUM Cl (KCl) 50 ML IV PRN ×2 (08:16→09:43)
[2018-09-28] MEDS ORDERED: traMADol 50 MG TAB PO PRN (08:46)
[2018-09-28] MEDS: METOPROLOL TARTRATE 25 MG TAB PO SCH ×2 (10:34→20:02)
--- NOTE | 2018-09-28 11:20 | PDCONSULT ---
[employer] Note: ASSESSMENT 52-year-old male with bicuspid aortic valve, CKD, hypertension admitted with severe aortic stenosis status post bioprosthetic AVR, POD # 1. # severe aortic stenosis s/p AVR # CKD status post pediatric urologic surgery # hypertension # Post operative respiratory failure, resolved. RECOMMENDATIONS # aggressive pulmonary toilet, wean supplemental oxygen as tolerated # agree with post operative care per CTS # okay to hold ACEi for now. Long-term patient should be on JOAQUINA inhibitor or ARB to slow the progression of CKD per guidelines # avoid nephrotoxins # Feeding - advance as tolerated # Analgesia APAP, fentanyl # Sedation propofol # Thromboprophylaxis - SQ hep # Head of bed elevated # Ulcer prophylaxis - PPI # Glucose insulin gtt # Skin no skin breakdown # Delirium - delirium precautions I was asked by Dr. Crocker of CT surgery to evaluate patient for postoperative ICU care. 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 He was evaluated subsequently found to have severe aortic stenosis and underwent bioprosthetic aortic valve repair via median sternotomy. Prior to surgery he describes 1-2 weeks of dyspnea on exertion and lightheadedness. The current juncture he denies headaches, fevers chills, chest pain, nausea vomiting , shortness of breath or leg swelling. He says he feels remarkably better since undergoing his operation yesterday. Allergies no known drug allergies Home medications magnesium citrate p.r.n. Metoprolol tartrate, multivitamin, nifedipine, potassium Family history No family history of severe aortic stenosis Past medical history congenital vesicular ureteral reflux, status post ureteral tailoring, CKD, hypertension Social history Denies tobacco alcohol or other illicit lives in [place] Review of systems A comprehensive 10 point review of systems negative except as per HPI. Vitals Afebrile, heart rate 64, blood pressure 130 was 65 map 86, normal sinus rhythm, respiratory rate 18 97% 3 L nasal cannula GEN: NAD, up in chair, interactive NEURO: A&Ox3, CN 2-12 GI HEENT: PERRL, EOMI, MMM, OP clear NECK: supple, trachea midline CHEST normal shape, no pes excavatum, single subxiphoid 36 Spanish chest tube in place, no leak CVS: Regular rhythm, pericardial rub present PULM: CTA B, no wheezes/rales/rhonchi ABD: soft, NT, ND, NABS EXT: SCDs in place no swelling, no cyanosis, full ROM SKIN: warm, dry, intact, no rash PSYCH CAM negative, appropriate affect Data I have reviewed interpreted the patient's laboratory and radiographic images Chest x-ray 09/28/2018 Low lung volumes, right IJ site introducer sheath and [place] scan catheter in right lower PA, wide mediastinum, mild left > right airspace opacities a subxiphoid drain in place
--- NOTE | 2018-09-28 12:41 | ASMTCMCOM ---
CM Note CM Note Notes: Patient is POD #[address] Hummel. He is to increase activity as tolerated. He is normally independent, lives with his girlfriend. PT/OT will re-eval. Case Management will follow. Date Signed: 09/28/2018 12:40 PM Electronically Signed By:Janine Valencia RN
--- NOTE | 2018-09-28 17:18 | HOSPPROG ---
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 Renal u/s neg for obstruction. - cont to follow - avoid nephrotoxic agents, renally dose medications Hypokalemia - resolved Leukocytosis - likely stress response, resolved Code - Full Ppx - Lovenox post-op per CV surgery team Dispo - cont inpt, OR today Medicine will sign off as now primary CV surgery patient. Please re-consult for any further questions or concerns. Objective: Vital Signs Temp Pulse Resp BP Pulse Ox 37.0 C 82 16 145/78 H 96 09/28/18 09:00 09/28/18 17:02 09/28/18 17:02 09/28/18 17:02 09/28/18 17:02 Laboratory Results 09/28/18 04:10 09/28/18 14:00 09/27/18 09/28/18 09/29/18 05:59 05:59 04:59 Intake Total 2329.5 912 Output Total 1437 425 Balance 892.5 487 PT 14.4 SEC (12.0-15.0) 09/25/18 03:40 INR 1.10 (0.83-1.16) 09/25/18 03:40 ICD10 Worksheet Patient Problems: Problems Problem Status Onset DOTTIE (acute kidney injury) Acute Acute blood loss anemia Acute Aortic stenosis due to bicuspid aortic valve Acute Dizziness Acute Nausea & vomiting Acute S/P aortic valve replacement with bioprosthetic valve Acute ~09/27/18
[2018-09-28] MEDS: traMADol 50 MG TAB PO PRN (23:03)
[2018-09-29] MEDS: ceFAZolin 2 GM/DEXTROSE 100 ML IV SCH (05:55)
--- NOTE | 2018-09-29 07:39 | SOAPPROG ---
SOAP Progress Note Assessment/Plan: Assessment: POD#2 AVR #23 Intuity Elite sutureless bioprosthesis BAV w sx severe - s/p tissue AVR. Stable early postop course. No pressor support. No bradyarrhythmias. No sig fluid overload. Chest tube and Vwire out. Antithrombotic prophylaxis with ASA alone pending stability of rhythm. AF prophylaxis and HTN control with BB. Acute expected blood loss anemia - Stable. No blood products transfused. CKD3 - Baseline Cr 1.3 -1.5. Stable. Adequate auto-diuresis. Avoid tight BP control. HTN - home control on combination therapy. Postop control preferentially with BB. Consider ARB prior to discharge if HR controlled and renal fx stable. Plan: Inc metoprolol to 50 mg BID. Baseline postop echo tomorrow. Cont inc activity as tolerated. Wean O2. Dispo - Home without services in 1-2 days. 09/29/18 07:37 Subjective: Feels well. Min incisional discomfort. Independent mobility. Hopeful for home tomorrow. Objective: Vital Signs Temp Pulse Resp BP Pulse Ox 36.7 C 88 17 122/80 H 93 09/29/18 03:40 09/29/18 03:40 09/29/18 03:40 09/29/18 03:40 09/29/18 03:40 Laboratory Results 09/28/18 04:10 09/29/18 05:35 09/28/18 09/29/18 09/30/18 06:59 05:59 05:59 Intake Total Output Total Balance PT 14.4 SEC (12.0-15.0) 09/25/18 03:40 INR 1.10 (0.83-1.16) 09/25/18 03:40 Holding SR w freq PACs. Sufficient SBP to inc BB. Min suppl O2 req. Adequate fluid balance w stable renal fx. - Pending Discharge Pending Discharge Within 48 Hours: Yes Pending Discharge Date: 10/01/18 Pending Discharge Time: 11:00 Physical Exam - Physical Exam General Appearance: alert, no apparent distress Respiratory: crackles (bases), other (chest tube dressing CDI) Cardiac/Chest: regular rate, rhythm, other (Sternal dressing CDI) Abdomen: non-tender, soft Skin: warm/dry Extremities: other (no visible edema) ICD10 Worksheet Patient Problems: Problems Problem Status Onset DOTTIE (acute kidney injury) Acute Acute blood loss anemia Acute Aortic stenosis due to bicuspid aortic valve Acute Dizziness Acute Nausea & vomiting Acute S/P aortic valve replacement with bioprosthetic valve Acute ~09/27/18
[2018-09-29] MEDS ORDERED: POTASSIUM CL 20 MEQ TAB PO ONE (09:00)
[2018-09-29] MEDS: traMADol 50 MG TAB PO PRN (09:05)
[2018-09-29] MEDS: PANTOPRAZOLE SODIUM 40 MG TAB PO SCH (09:05)
[2018-09-29] MEDS: SENNOSIDES/DOCUSATE SODIUM TAB PO SCH ×2 (09:05→21:17)
[2018-09-29] MEDS: METOPROLOL TARTRATE 50 MG TAB PO SCH ×2 (09:05→21:17)
[2018-09-29] MEDS: ASPIRIN 81 MG CHEWABLE TAB PO SCH (09:05)
[2018-09-29] MEDS: MUPIROCIN 2% 22 GM OINT NS SCH (09:09)
--- NOTE | 2018-09-29 16:18 | ASMTCMCOM ---
CM Note CM Note Notes: Chart reviewed for discharge needs. [facility] likely to discharge to home no needs. CM available should needs arise. Plan: Likely to dc to home. Date Signed: 09/29/2018 04:18 PM Electronically Signed By:Mine Art RN
--- NOTE | 2018-09-29 23:59 | GOP ---
DATE OF OPERATION: 09/27/2018 SURGEON: Mando Maravilla MD SENIOR GRANT WRITER: Aliyah Moss, PAC. PREOPERATIVE DIAGNOSIS: Critical aortic stenosis. POSTOPERATIVE DIAGNOSIS: Critical aortic stenosis. PROCEDURE PERFORMED: Aortic valve replacement with a 23 mm Nelson Intuity bioprosthesis. FINDINGS: INDICATIONS: The patient is a 52-year-old man with a vague history of aortic stenosis who presented with lightheadedness and recent loss of consciousness. He was found to have critical aortic stenosis confirmed on echocardiography. Coronary angiography was normal. Left ventricular function was norm al. Patient was recommended to undergo urgent surgical valve replacement. DESCRIPTION OF PROCEDURE: Patient was taken to the operating room and placed on the operating table in supine position. After the induction of general anesthesia and single-lumen endotracheal tube int ubation, patient was prepped and draped sterilely. A standard median sternotomy was performed, and t he patient was fully heparinized. He was cannulated with a Sarns 8.0 Soft-Flow aortic cannula as wel l as a dual-stage venous right atrial cannula. Cardiopulmonary bypass was instituted. The crossclam p was applied, and the heart was arrested with 1 L of [place] solution. The aorta was opened. The aorta was somewhat thin but of normal caliber. A heavily calcified valve was encountered with fusion of the right and left cusps of the aorta and essentially immobility of the noncoronary cusp. These were all resected, and the annulus was meticulously debrided. It was sized to a 23 mm Intuity valve. That valve was then brought up onto the field. Three sutures were placed at the kenn of each of t he leaflet remnants, and the valve was seated in the annulus without difficulty. The balloon was inf lated, and each of the sutures were tied and then the aorta was then closed in two layers with Prolen e suture. The crossclamp was removed. Atrial and ventricular pacing wires were placed. Single medi astinal chest drain was also placed. Patient was from cardiopulmonary bypass without diffi culty and then postpump transesophageal echo showed a normally functioning bioprosthetic valve in the aortic position. Left ventricular function is well preserved. The protamine was administered, and the patient was decannulated once off bypass. All cannulation sites were doubly secured with Prolene suture, and after hemostasis had been achieved the heart was covered with pericardium the chest was closed with #6 stainless steal wires. Subcutaneous tissue and skin were closed running Vi cryl suture. The patient tolerated the procedure well. /[id number]/MODL
--- NOTE | 2018-09-30 06:56 | SOAPPROG ---
SOAP Progress Note Assessment/Plan: Assessment: POD#3 AVR #23 Intuity Elite sutureless bioprosthesis BAV w sx severe - s/p tissue AVR. Stable early postop course. Chest tube and Vwire out. Antithrombotic prophylaxis with ASA alone. AF prophylaxis and HTN control with BB. Acute expected blood loss anemia - Stable. No blood products transfused. Postoperative paroxysmal atrial fib/flutter - Brief episode yest w VVR, no RVR. Responsive to inc BB. No recurrence overnoc. Antithrombotic prophylaxis deferred. CKD3 - Baseline Cr 1.3 -1.5. Stable. Adequate auto-diuresis. Avoid tight BP control. HTN - home control on combination therapy. Postop control preferentially with BB. Use of CCB or ARB deferred to outpt f/u. Plan: Cont metoprolol 50 mg BID. Baseline postop echo today. Wean O2. Dispo - Home later today. Instructions re diet, meds, activity, wound care, and f/u to be reviewed in presence of girlfriend. 09/30/18 06:55 Subjective: Feels well. Light activity well tolerated. Good appetite. Satisfactory analgesia. Would like to go home. Objective: Vital Signs Temp Pulse Resp BP Pulse Ox 36.9 C 83 18 137/89 H 95 09/30/18 05:30 09/30/18 05:30 09/30/18 05:30 09/30/18 05:30 09/30/18 05:30 Laboratory Results 09/28/18 04:10 09/30/18 04:45 09/29/18 09/30/18 10/01/18 05:59 05:59 05:59 Intake Total 2000 Output Total 1000 Balance 1000 PT 14.4 SEC (12.0-15.0) 09/25/18 03:40 INR 1.10 (0.83-1.16) 09/25/18 03:40 Improved HR control and BP on inc BB. No further PACs or PAF/Fl as of yest afternoon. Borderline suppl O2 req. CXR -> tiny residual left pleural effusion Excellent UOP. Approaching baseline wt. Physical Exam - Physical Exam General Appearance: alert, no apparent distress Respiratory: lungs clear Cardiac/Chest: regular rate, rhythm, other (Sternum grossly stable. Sternotomy and CT site CDI.) Abdomen: non-tender, soft Skin: warm/dry Extremities: swelling (trace) ICD10 Worksheet Patient Problems: Problems Problem Status Onset DOTTIE (acute kidney injury) Acute Acute blood loss anemia Acute Aortic stenosis due to bicuspid aortic valve Acute Dizziness Acute Nausea & vomiting Acute S/P aortic valve replacement with bioprosthetic valve Acute ~09/27/18
[2018-09-30] MEDS ORDERED: POTASSIUM CL 20 MEQ TAB PO ONE (08:00)
[2018-09-30] MEDS: ASPIRIN 81 MG CHEWABLE TAB PO SCH (08:42)
[2018-09-30] MEDS: SENNOSIDES/DOCUSATE SODIUM TAB PO SCH (08:42)
[2018-09-30] MEDS: METOPROLOL TARTRATE 50 MG TAB PO SCH (08:43)
[2018-09-30] MEDS: PANTOPRAZOLE SODIUM 40 MG TAB PO SCH (08:43)
--- NOTE | 2018-09-30 10:22 | PDHOMEO2F ---
Home Oxygen Face to Face Home Orders: I certify that a physician or a nurse practitioner or physician's facilities maintenance assistant has had a [id number] encounter with this patient on the date of this order due to the diagnosis listed, which relates to the primary reason the patient requires home oxygen. Alternative treatments have been tried, or considered, and deemed ineffective. It is anticipated that supplemental oxygen will result in improvement with treatment. 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 Length of time home oxygen needed: 1 month (duration TBD)
--- NOTE | 2018-09-30 10:22 | PDDCSUM ---
Discharge Summary Discharge Summary: DATE OF ADMISSION: 09/26/18 DATE OF DISCHARGE: 09/30/18 DISPOSITION: Home, self-care PRINCIPAL ADMISSION DIAGNOSES: dizziness and nausea PRINCIPAL DISCHARGE DIAGNOSES: 1. Nonobstructive carotid artery disease 2. Coronary artery disease excluded 3. Dilated ascending aorta 4. Nocturnal hypoxemia. Obstructive sleep apnea suspected. 5. Status post aortic valve replacement with a bioprosthesis 6. Acute expected blood loss anemia 7. Postoperative paroxysmal atrial fibrillation/flutter HISTORY OF PRESENT ILLNESS: 52 yo male with a BAV, severe , mild AI, and hypertrophic heart disease evaluated in the ER for worsening dizziness with profound nausea and near syncope. Stroke and obstructive cerebrovascular disease ruled out. Found to have critical and referred for urgent AVR. PERTINENT PAST MEDICAL HISTORY: Labile HTN, LVH with LVDD, CKD stage 3, prediabetes MEDICATIONS ON ADMISSION: Nifedipine ER 60 mg HS, Toprol XL 25 mg HS, MVI daily, herbal supplement daily ALLERGIES/SENSITIVITIES: Latex CONSULTANTS: Cardiology ([facility]), CV surgery ([facility]), Pulmonology/critical care () PROCEDURES/IMAGIN/1 ([facility]) Transthoracic echocardiogram: Borderline concentric LVH, Grade 2 LVDD, LVEF 60%, BAV with critical (PSV 4.8, PG 92, MG 61), mild to moderate AI, mild MR, mild TR, RVSP 38, 3.4 cm asc aorta. 09/[address]: 3.9 cm ascending aorta 09/26 ([facility]): Left and right heart catheterization with selective coronary angiography. Access right femoral vessels. Findings: PA 50/24, PCWP 25, CI 3.2, right dominant coronary circulation, no angiographic evidence of CAD. [facility] Urgent aortic valve replacement with a 23 mm Nelson Intuity Elite bovine pericardial sutureless bioprosthesis. ABBREVIATED HOSPITAL COURSE BY ACTIVE PROBLEM LIST: 1. BAV w sx severe and a mildly dilated asc aorta - s/p tissue AVR. Stable early postop course. PA pressures markedly reduced after surgery. Antithrombotic prophylaxis with ASA alone. AF prophylaxis and HTN control with BB. Surveillance of asc aortic dimensions per cards. 2. Acute expected blood loss anemia - Stable. No blood products transfused. H/H > 10/35 maintained. 3. Postoperative paroxysmal atrial fib/flutter - Brief episode POD#2. Variable ventricular response, no RVR. Responsive to inc BB. No recurrence noted and antithrombotic prophylaxis deferred. 4. CKD3 - Baseline Cr 1.3 -1.5. Precautionary renal US neg for obstruction. Postop Cr below baseline. Tight BP control avoided. Adequate auto-diuresis noted. 5. HTN - home control on combination therapy. Postop control preferentially with short acting BB. Use of CCB or ARB deferred to outpt f/u. 6. Nocturnal hypoxemia - Preop desats into upper 70s%. YANA suspected. No unexpected postop respiratory insufficiency. Extubated without incident. Steady reduction in suppl O2 needs. 7. Prediabetes - Preop A1c of 6%. Early postop hyperglycemia controlled with insulin gtt. Transitioned to SSI. Prompt resolution of correctional needs. Further f/u per PCP. DISCHARGE CLINICAL INFORMATION: Sternum grossly stable. Sternotomy CDI, sutured, +Dermabond. HR 80s. SBP 130s. SpO2 87% RA, correcting to 96% on 1 Lpm O2. Wt 2.3 kg above admission at 104 kilos. Hgb 12.2, HCT 36, Plt 146, Na 137, K 3.5, Cr 1.2 DISCHARGE MEDICATIONS: As on admission with the following adjustments: 1. Hold Toprol XL 2. Hold Nifedipine ER NEW prescriptions: 1. Metoprolol tartrate 50 mg BID 2. Tramadol 50 mg one-half tab to two tabs prn breakthrough incisional discomfort 3. Oxygen at 1 Lpm continuously or as directed by SpO2 4. OTC: (a) Tylenol 500-650 mg q 4h prn incisional discomfort. Max daily dose 3, 000 mg (b) ASA 81 mg daily FOLLOW UP APPOINTMENTS: 1. CV surgery: with Dr Davis at [facility] on 10/08 at 11 am. 2. Cardiology: with Dr Michaud at [facility] within 4-6 weeks. Appointment to be established during surgical visit. 3. PCP: Surveillance prediabetes, sleep study when recovered from cardiac surgery. FOLLOW UP TESTING: CXR prior to surgical appointment.
[2018-09-30 12:05] VITALS: BP 138/74
--- NOTE | 2018-09-30 12:24 | ASDISCHSUM ---
Discharge Information Plan Status:Home with No Needs Medically Cleared to Leave:09/29/2018 Discharge Date:09/29/2018 CM D/C Disposition:Home, Routine, Self-Care ADT D/C Disposition:Home, Routine, Self-Care Projected Discharge Date:09/29/2018 Transportation at D/C:Family Discharge Delay Reason: Follow-Up Date:09/29/2018 Discharge Slot: Final Diagnosis: Placement Information Patient Contact Information Contact Name:DEANDRA Relationship:Other Address:[address] [place] [address] Work Phone: City:[facility] Alternate Phone: State/Zip Code:[place] [address] Email: Financial Information Financial Class:BCOP Primary Plan Desc: OUT OF STATE [facility] Primary Plan Number:[id number] Secondary Plan Desc: Secondary Plan Number: Assessment Information LACE LACE Length of stay for Answers: 4-6 days current admission Acuity / Level of Answers: Yes Care: Did the patient have an inpatient admission? Comorbidities - select Answers: Moderate or severe liver all that apply or renal disease Opioid dependence / Chronic pain Other Notes: HTN # of Emergency department Answers: 1-2 visits in the last 6 months Score: 17 Date Signed: 09/30/2018 12:13 PM Electronically Signed By:Bobbi Haro RN [facility] Progress Note CM Note CM Note Notes: Pt is a 52 y/o man admitted for dizziness. PT has worked w/ pt and has cleared him to d/c without any needs. OT is pending. CM available for changes. Plan: Independent Date Signed: 09/25/2018 12:49 PM Electronically Signed By:MICHAEL Mcallister [facility] CM Progress Note CM Note CM Note Notes: Pts case discussed in tx rounds. Pt is getting a heart cath today. Pt may need open heart in the near future. Pt is not a candidate for TAVR at this time. CM met w/ pt and partner for dispo planning. Pt is concerned that his [employer] will not cover an open heart. CM provided pt w/ phone number for financial counseling. CM available for d/c needs. Date Signed: 09/26/2018 01:59 PM Electronically Signed By:MICHAEL Mcallister [facility] CM Progress Note CM Note CM Note Notes: Patient is POD #[address] Hummel. He is to increase activity as tolerated. He is normally independent, lives with his girlfriend. PT/OT will re-eval. Case Management will follow. Date Signed: 09/28/2018 12:40 PM Electronically Signed By:Janine Valencia RN [facility] CM Progress Note CM Note CM Note Notes: Chart reviewed for discharge needs. [facility] likely to discharge to home no needs. CM available should needs arise. Plan: Likely to dc to home. Date Signed: 09/29/2018 04:18 PM Electronically Signed By:Mine Art RN Case Management Discharge Plan Note Case Management Discharge Discharge Order Complete? Answers: Yes Patient to Obtain Answers: via Family Medications Transportation Arranged Answers: Family/Friends Discharge Comments Notes: 09/30/2018 Case Management Note Pt to discharge home with family support and cardiac outpatient rehab. Date Signed: 09/30/2018 12:15 PM Electronically Signed By:Bobbi Haro RN Intervention Information
--- NOTE | 2018-09-30 13:49 | ECHO ---
[email or web address] [address] Main: [phone] Fax: Transthoracic Echocardiogram Name: FRANCHESCA AUGUST MR#: [id number] Study Date: 09/30/2018 Study Time: 08:02 AM Date of : 1965 Age: 52 year(s) Height: 175.3 cm (69 in.) Weight: 105.69 kg (233 lb.) BSA: 2.2 m2 Gender: Male Examination: Echo Indication: routine baseline poetop s/p AVR#23 CE Intuity bioprosthetic Image Quality: Technically Difficult Contrast: Requested by: Aliyah Moss BP: 137 mmHg/89 mmHg Heart Rate: Rhythm: Indication: routine baseline poetop s/p AVR#23 CE Intuity bioprosthetic Procedure Staff Breaker Layer: Rachna Hoff [facility] Reading Physician: Frank Shoemaker MD Requesting Provider: Conclusions: Normal size left ventricle. Mild concentric LV hypertrophy. EF is 66 %. The mitral valve is normal in appearance and function. Trivial mitral valve regurgitation. There is bioprosthetic valve in the aortic position. It appears to sit and function normally. The mean gradient is 10 mmHg. There is no aortic insufficiency.. Normal size aortic root measuring 2.7 cm. When compared to the 09/26/18 study. The aortic valve has been replaced. Measurements: Chambers Valvular Assessment AV/MV Valvular Assessment TV/PV Normal Normal Normal Name Value Range Name Value Range Name Value Range Ao Barbie (MM): 2.7 cm (2.2 cm-3.7 AV Vmax: 2.05 m/s (1 m/s-1.7 PV Vmax: 1.30 m/s (0.6 m/s-0.9 cm) m/s) m/s) IVSd (2D): 1.2 cm (0.6 cm-1.1 AV maxP mmHg ( - ) PV PGmax: 7 mmHg ( - ) cm) AV meanP mmHg ( - ) LVDd (2D): 3.6 cm (4.2 cm-5.9 MV E Vmax: 1.15 m/s ( - ) cm) MV A Vmax: 0.91 m/s ( - ) LVDs (2D): 2.3 cm (2.1 cm-4 MV E/A: 1.26 ( - ) cm) LVPWd (2D): 1.2 cm (0.6 cm-1 cm) LVEF (2D): 66 (>=54 %) RVDd(2D): 2.2 cm (1.9 cm-3.8 cmmm) Continued Measurements: Patient: FRANCHESCA AUGUST Study Date: 09/30/2018 Page 1 of 2 08:02 AM Chambers Valvular Assessment AV/MV Name Value Name Value LADs Lon.7 cm MV DecTime: 211 m/s LA Area: 14.0 cm2 MV E' Septal: 0.07 m/s RA Area: 12.8 cm2 MV E/E' Septal: 16.40 MV E/E' Lateral: 24.60 Findings: Left Ventricle: Normal size left ventricle. Mild concentric LV hypertrophy. Normal global systolic LV function. EF is 66 %. Post-op septal motion noted. Right Ventricle: Normal size right ventricle. Normal RV function. Left Atrium: The left atrium is normal in size. Right Atrium: The right atrium is normal in size. Mitral Valve: The mitral valve is normal in appearance and function. Trivial mitral valve regurgitation. No mitral stenosis is present. Aortic Valve: The aortic valve is a bioprosthesis. No prosthesis stenosis. No prosthesis regurgitation. There is bioprosthetic valve in the aortic position. It appears to sit and function normally. The mean gradient is 10 mmHg. There is no aortic insufficiency.. Tricuspid Valve: Tricuspid valve not well visualized. There is no significant tricuspid valve regurgitation. Pulmonary artery pressure is not obtained due to inadequate TR jet. Pulmonic Valve: Pulmonary valve not well visualized. Mild pulmonic valve regurgitation is noted. Aorta: Normal size aortic root measuring 2.7 cm. IVC: The IVC is not visualized. Pericardium: No pericardial effusion. (No Signature Object) Patient: FRANCHESCA AUGUST Study Date: 09/30/2018 Page 2 of 2 08:02 AM [id number]
== END 2018-09-30 12:51 | disposition home or self-care (01) | DRG 217 ==
LOC: F2W 05:25 → OBSVTOIN 09-26 10:34 → F2N 09-27 10:34 → F2W 09-28 16:50
PROVIDERS: ADMIT Thoracic Surgery (Cardiothoracic Vascular Surgery); ATTEND Thoracic Surgery (Cardiothoracic Vascular Surgery)
DX: Q23.1 Congenital insufficiency of aortic valve (principal); D62 Acute posthemorrhagic anemia; I12.9 Hypertensive chronic kidney disease with stage 1 through stage 4 chronic kidney disease, or unspecified chronic kidney disease; N18.3 Chronic kidney disease, stage 3 (moderate); G47.33 Obstructive sleep apnea (adult) (pediatric); I48.0 Paroxysmal atrial fibrillation; I48.92 Unspecified atrial flutter; I65.29 Occlusion and stenosis of unspecified carotid artery; I42.2 Other hypertrophic cardiomyopathy; R73.03 Prediabetes
CPT/HCPCS: 80305; 82435-PO; 82565-PO; 82947-PO; 83605-PO; 84132-PO; 84295-PO; 84484-PO; 84520-PO; 85014-PO; 96374; 97116-GP; 97161-GP; 97164-GP; 97165-GO; 97168-GO; 97530-GP; 97535-GO; C1760; C1768; G0009; G0378; J0153; J0282; J0690; J1170; J1265; J1580; J1644; J1815; J2001; J2150; J2250; J2260; J2370; J2405; J2550; J2704; J2720; J2765; J2930; J3010; J3480; P9041; Q9967

== ENCOUNTER → 2018-10-08 | Outpatient (CLI) | payer BC | LOC: EDSTATUS 10:17 → FIMAGING 10:17 | PROVIDERS: ATTEND Thoracic Surgery (Cardiothoracic Vascular Surgery) | DX: R91.8 Other nonspecific abnormal finding of lung field (principal); J90 Pleural effusion, not elsewhere classified; Z95.2 Presence of prosthetic heart valve ==